=== PATIENT | male | born 1990 | race Two or more races ===

== ENCOUNTER 2020-05-18 17:02 | Emergency (ER) | payer SELFPAY ==
[~2020-05-18] VITALS: Ht 172.7 cm; Wt 104.3 kg
[2020-05-18] MEDS ORDERED: OXYC-133 PO (17:42)
--- NOTE | 2020-05-18 17:55 | NUR ---
Patient discharged to home in stable condition with brisk steady gait. Written and verbal after care instructions given. Patient verbalizes understanding & compliance of instructions. Stressed follow up with primary doctor and neurologist or return to ER for worsening s/s.
== END 2020-05-18 17:56 | disposition home or self-care (01) ==
LOC: ER 17:06
DX: R51.9 Headache, unspecified (principal)
CPT/HCPCS: 70450; A4663